=== PATIENT | female | born 1950 | race Caucasian/White ===

== ENCOUNTER 2022-11-26 12:43 | Day surgery (SDC) | payer BC ==
[2022-11-26] VITALS (17 sets, daily range): BP systolic 123–186; BP diastolic 77–130
[~2022-11-26] VITALS: Ht 185.4 cm; Wt 79.3 kg
[2022-11-26] MEDS ORDERED: normal saline 1000ml 1,000 ML IV SCH (13:20)
[2022-11-26] MEDS ORDERED: fentaNYL/PF 50MCG/1 ML 2ML syringe IV ONE (13:20)
[2022-11-26] MEDS ORDERED: MIDAZolam 1mg/ml 10ml vial IV ONE (13:20)
[2022-11-26] MEDS ORDERED: METO25TA6 PO (13:26)
[2022-11-26] MEDS ORDERED: PROG100C11 PO (13:26)
[2022-11-26] MEDS ORDERED: WARF-55 PO ×2 (13:26)
[2022-11-26] MEDS ORDERED: LEVO100T PO (13:26)
[2022-11-26] MEDS ORDERED: ESTR1PAT94 TD (13:26)
[2022-12-03] MEDS ORDERED: THIA100T70 PO (10:42)
[2022-12-03] MEDS ORDERED: VITAMIN D PO (10:42)
[2022-12-03] MEDS ORDERED: [UNRECOGNIZED DRUG - OTHER] PO (10:42)
[2022-12-03] MEDS ORDERED: OMEGA-3 (10:42)
[2022-12-03] MEDS ORDERED: UBID100C16 PO (10:42)
[2022-12-03] MEDS ORDERED: MANGANESE PO (10:42)
[2022-12-03] MEDS ORDERED: ZINC10LO5 PO (10:42)
[2022-12-03] MEDS ORDERED: MILK175T PO (10:42)
[2022-12-03] MEDS ORDERED: TRACE MINERAL PO (10:42)
[2022-12-03] MEDS ORDERED: SAW160CA3 PO (10:42)
[2022-12-03] MEDS ORDERED: VITAMIN B PO (10:42)
[2022-12-03] MEDS ORDERED: MAGN500C4 PO (10:42)
[2022-12-03] MEDS ORDERED: MSM PO (10:42)
[2022-12-03] MEDS ORDERED: GALLBLADDER FORMULA PO (10:42)
[2022-12-03] MEDS ORDERED: MACUGUARD PO (10:42)
[2022-12-03] MEDS ORDERED: [UNRECOGNIZED DRUG - OTHER] (10:42)
[2022-12-03] MEDS ORDERED: ASCO500C17 PO (10:42)
[2022-12-03] MEDS ORDERED: PRAS25CA PO (10:42)
[2022-12-04] MEDS ORDERED: LOP12.5T PO (19:26)
[2022-12-04] MEDS ORDERED: PROGESTERONE COMPOUN TOP (19:28)
[2022-12-04] MEDS ORDERED: [UNRECOGNIZED DRUG - OTHER] PO (19:30)
[2022-12-04] MEDS ORDERED: OMEG10006 PO (19:32)
[2022-12-04] MEDS ORDERED: [UNRECOGNIZED DRUG - OTHER] PO (20:56)
== END 2022-11-26 15:50 | disposition home or self-care (01) ==
LOC: SSTAY O 12:43 → EDSTATUS 18:30
PROVIDERS: ATTEND Internal Medicine Interventional Cardiology
DX: I48.0 Paroxysmal atrial fibrillation (principal); E03.9 Hypothyroidism, unspecified; Z79.899 Other long term (current) drug therapy; Z98.890 Other specified postprocedural states
CPT/HCPCS: 93312; 93325; J2250; J3010; J7030; A4620

== ENCOUNTER 2023-01-14 11:58 | Day surgery (SDC) | payer BC ==
[2023-01-14] VITALS (11 sets, daily range): BP systolic 129–165; BP diastolic 77–121
[~2023-01-14] VITALS: Ht 185.4 cm; Wt 80.4 kg
[~2023-01-14 11:58] MED LIST: ASCO500C17 PO; ESTR1PAT94 TD; GALLBLADDER FORMULA PO; LEVO100T PO; LOP12.5T PO; MACUGUARD PO; MAGN500C4 PO; MANGANESE PO; METO25TA6 PO; MILK175T PO; MSM PO; OMEG10006 PO; PRAS25CA PO; PROGESTERONE COMPOUN TOP; SAW160CA3 PO; THIA100T70 PO; TRACE MINERAL PO; UBID100C16 PO; VITAMIN B PO; VITAMIN D PO; WARF-55 PO; ZINC10LO5 PO; [UNRECOGNIZED DRUG - OTHER] PO; [UNRECOGNIZED DRUG - OTHER] PO; [UNRECOGNIZED DRUG - OTHER] PO
[2023-01-14] MEDS ORDERED: METO25TA6 PO (12:29)
[2023-01-14] MEDS ORDERED: MIDAZolam 1mg/ml 10ml vial IV ONE (12:50)
[2023-01-14] MEDS ORDERED: normal saline 1000ml 1,000 ML IV SCH (12:50)
[2023-01-14] MEDS ORDERED: fentaNYL/PF 50MCG/1 ML 2ML syringe IV ONE (12:50)
[2023-01-14 12:55] LABS: BASOPHILS % (AUTO) 1.3 % (0-1); EOSINOPHILS # (AUTO) 0.1 X10'3 (0-0.9); EOSINOPHILS % (AUTO) 2.8 % (0-6); HEMATOCRIT 38.6 % (35.0-45.0); HEMOGLOBIN 12.9 g/dl (12.0-16.0); LYMPHOCYTES # (AUTO) 1.4 X10'3 (1.1-4.8); LYMPHOCYTES % (AUTO) 36.7 % (21-51); MEAN CORPUSCULAR HEMOGLOBIN 31.3 PG (27.0-31.0); MEAN CORPUSCULAR HGB CONC 33.4 g/dL (33.0-36.5); MEAN CORPUSCULAR VOLUME 93.7 FL (78-98); MEAN PLATELET VOLUME 7.9 FL (7.4-10.4); MONOCYTES # (AUTO) 0.3 X10'3 (0-0.9); MONOCYTES % (AUTO) 7.9 % (2-12); NEUTROPHILS % (AUTO) 51.3 % (42-75); PLATELET COUNT 145 X10'3 (140-440); RED BLOOD COUNT 4.12 X10'6 (4.20-5.60); RED CELL DISTRIBUTION WIDTH 15.3 % (11.5-14.5); WHITE BLOOD COUNT 3.8 X10'3 (4.5-11.0)
[2023-01-14 13:03] LABS: ALBUMIN 3.7 G/DL (3.4-5.0); ANION GAP 6 (8-16); BLOOD UREA NITROGEN 17 MG/DL (7-18); BUN/CREATININE RATIO 18.5 (10.0-20.0); CALCIUM 8.6 MG/DL (8.5-10.1); CHLORIDE 109 MMOL/L (99-107); CREATININE 0.92 MG/DL (0.40-0.90); GLUCOSE 87 MG/DL (70-104); POTASSIUM 3.9 MMOL/L (3.5-5.1); SODIUM 143 MMOL/L (135-145); TOTAL CARBON DIOXIDE 27.6 MMOL/L (24-32); eGFR 60 ML/MIN
[2023-01-14] MEDS ORDERED: diphenhydrAMINE 50 mg/ml inj IV ONE (13:44)
== END 2023-01-14 15:45 | disposition home or self-care (01) ==
LOC: SSTAY O 11:58 → EDSTATUS 14:00 → SSTAY O 15:45
PROVIDERS: ATTEND Student in an Organized Health Care Education/Training Program
DX: Z45.09 Encounter for adjustment and management of other cardiac device (principal); E03.9 Hypothyroidism, unspecified; I48.0 Paroxysmal atrial fibrillation; E72.12 Methylenetetrahydrofolate reductase deficiency; Z79.01 Long term (current) use of anticoagulants; Z79.899 Other long term (current) drug therapy; Z79.82 Long term (current) use of aspirin
CPT/HCPCS: 36415; 80048; 85025; 85610; 93312; 93325; J1200; J2250; J3010; J7030; A4620